=== PATIENT | male | born 1945 ===

== ENCOUNTER 2018-01-21 06:00 | Day surgery (SDC) | payer OTHER ==
[~2018-01-21] VITALS: Ht 182.9 cm; Wt 77.1 kg
== END 2018-01-21 12:41 | disposition home or self-care (01) ==
LOC: CIR.AMB 06:00 → SURG 06:15 → O/R 06:15 → SURG 10:00 → EDSTATUS 11:00 → CIR.AMB 12:41 → O/R 17:20
DX: M17.12 Unilateral primary osteoarthritis, left knee (principal); E87.6 Hypokalemia; Z53.09 Procedure and treatment not carried out because of other contraindication; Z95.4 Presence of other heart-valve replacement

== ENCOUNTER 2018-02-03 16:19 | Inpatient (IN) | payer OTHER ==
[~2018-02-03] VITALS: Ht 182.9 cm; Wt 175.0 kg
[~2018-02-03 16:19] MED LIST: CARVEDILOL 25 MG; FUROSEMIDE40 MG; JANUVIA25 MG; METFORMIN HCL500 MG; METOLAZONE2.5 MG; WARFARIN 5 MG
[2018-02-04] MEDS ORDERED: COUMADIN5 MG PO (09:25)
[2018-02-04] MEDS ORDERED: CARVEDILOL25 MG PO (09:26)
[2018-02-05] MEDS ORDERED: HYDRALAZINE HCL25 MG PO (10:25)
[2018-02-05] MEDS ORDERED: COLCHICINE0.6 M1 PO (10:25)
[2018-02-05] MEDS ORDERED: CARVEDILOL25 MG PO (10:25)
[2018-02-05] MEDS ORDERED: JANUVIA25 MG PO (10:25)
[2018-02-05] MEDS ORDERED: LASIX40 MG PO (10:26)
[2018-02-05] MEDS ORDERED: HYDROCHLOROTHIA25 MG PO (10:26)
[2018-02-05] MEDS ORDERED: COUMADIN5 MG PO (10:26)
[2018-02-05] MEDS ORDERED: METFORMIN HCL500 MG PO (10:26)
[2018-02-10] MEDS ORDERED: COUMADIN5 MG PO (09:02)
[2018-02-10] MEDS ORDERED: PERCOCET 5-3251 EACH PO (09:02)
[2018-02-10] MEDS ORDERED: DUI500 PO (09:02)
== END 2018-02-10 13:25 | DRG 470 ==
LOC: SURH 02-04 06:14 → O/R 02-04 06:14 → SURH 02-04 14:22
PROVIDERS: Orthopaedic Surgery
PROC: 0MNP0ZZ Release Left Knee Bursa and Ligament, Open Approach (ICD-10-PCS; 2018-02-04)
PROC: 0SRD0J9 Replacement of Left Knee Joint with Synthetic Substitute, Cemented, Open Approach (ICD-10-PCS; principal; 2018-02-04 19:30)
PROC: 30233N1 Transfusion of Nonautologous Red Blood Cells into Peripheral Vein, Percutaneous Approach (ICD-10-PCS; 2018-02-06)
DX: M17.12 Unilateral primary osteoarthritis, left knee (principal); D62 Acute posthemorrhagic anemia; I97.191 Other postprocedural cardiac functional disturbances following other surgery; D68.32 Hemorrhagic disorder due to extrinsic circulating anticoagulants; M81.0 Age-related osteoporosis without current pathological fracture; I25.10 Atherosclerotic heart disease of native coronary artery without angina pectoris; I10 Essential (primary) hypertension; E11.9 Type 2 diabetes mellitus without complications; Z95.4 Presence of other heart-valve replacement; I48.0 Paroxysmal atrial fibrillation; T45.515A Adverse effect of anticoagulants, initial encounter